=== PATIENT | female | born 1975 ===

== ENCOUNTER 2023-08-16 09:50 | Outpatient (CLI) | payer OTHER, SELFPAY ==
[2023-08-16 10:39] LABS: Cholesterol 211 mg/dL (0-200); HDL Direct 99 mg/dL; Triglycerides 70 mg/dL (<150)
[2023-08-16 10:50] LABS: LDL Cholesterol Direct 102 mg/dL
[2023-08-16 11:06] LABS: Vitamin D 25 Hydroxy 48.1 ng/mL
[2023-08-17 11:43] LABS: FSH 108.1 mIU/mL; LH 28.1 mIU/mL
[2023-08-23 17:29] LABS: Estrogen 27 pg/mL
== END 2023-08-16 09:51 | disposition home or self-care (01) ==
PROVIDERS: PCP Family Medicine; Visit Provider Nurse Practitioner Family
DX: N92.6 Irregular menstruation, unspecified (principal); E55.9 Vitamin D deficiency, unspecified; Z13.220 Encounter for screening for lipoid disorders; Z13.29 Encounter for screening for other suspected endocrine disorder
CPT/HCPCS: 36415; 80061; 82306; 82672; 83001; 83002; 84443